=== PATIENT | male | born 1985 | race Hispanic/Latino ===

== ENCOUNTER → 2021-12-13 02:19 | Outpatient (CLI) | payer BC, SELFPAY ==
[2021-12-13 14:43] LABS: SARS-CoV-2 RNA PCR Negative
== END ==
PROVIDERS: PCP Nurse Practitioner Adult Health; Visit Provider Nurse Practitioner Adult Health
DX: R50.9 Fever, unspecified (principal); Z20.822 Contact with and (suspected) exposure to COVID-19
CPT/HCPCS: C9803; U0003; U0005

== ENCOUNTER 2022-01-27 16:24 | Outpatient (CLI) | payer BC, SELFPAY ==
[2022-01-27 16:53] LABS: Basophils Absolute Auto 0.1 K/mm3 (0.0-0.1); Basophils Percent Auto 0.9 % (0.2-1.2); Eosinophils Absolute Auto 0.1 K/mm3 (0-0.3); Eosinophils Percent Auto 0.9 % (0-4.4); Immature Granulocyte Absolute 0.02 K/mm3 (0.00-0.031); Immature Granulocyte Percent A 0.2 % (0-0.5); Lymphocytes Absolute Auto 5.87 K/mm3 (0.9-3.2); Lymphocytes Percent Auto 48.1 % (18.3-44.2); Mean Corpuscular HGB Conc 33.3 g/dl (32-36); Mean Corpuscular Volume 93.1 fl (80-100); Mean Platelet Volume 9.8 fl (7.4-10.4); Monocytes Absolute Auto 0.7 K/mm3 (0.1-0.6); Neutrophils Absolute Auto 5.4 K/mm3 (1.3-6.7); Neutrophils Percent Auto 43.9 % (45.5-73.1); Platelet Count Result 451 k/mm3 (150-375); Red Blood Count 4.51 M/mm3 (4.6-6.20); Red Cell Distribution Width 13.3 % (11.5-14.5); White Blood Count 12.2 K/mm3 (4.5-10.0)
== END 2022-01-27 16:25 | disposition home or self-care (01) ==
PROVIDERS: PCP Nurse Practitioner Adult Health
DX: B99.9 Unspecified infectious disease (principal)
CPT/HCPCS: 36415; 85025